=== PATIENT | female | born 1985 | race Caucasian/White ===

== ENCOUNTER 2023-02-20 08:37 | Outpatient (CLI) | payer OTHER, SELFPAY | END 2023-02-20 08:38 | disposition home or self-care (01) | PROVIDERS: PCP Family Medicine; Visit Provider Family Medicine | DX: Z00.00 Encounter for general adult medical examination without abnormal findings (principal); Z13.6 Encounter for screening for cardiovascular disorders | CPT/HCPCS: 80053; 80061 ==

== ENCOUNTER 2025-10-10 16:12 | Outpatient (CLI) | payer OTHER, SELFPAY | END 2025-10-10 16:13 | disposition home or self-care (01) | PROVIDERS: PCP Family Medicine; Visit Provider Family Medicine | DX: J45.30 Mild persistent asthma, uncomplicated (principal); R06.02 Shortness of breath; R05.9 Cough, unspecified | CPT/HCPCS: 80048 ==

== ENCOUNTER 2025-10-10 17:13 | Outpatient (CLI) | payer OTHER, SELFPAY ==
--- NOTE | 2025-10-10 17:15 | CRLHL7_ITS ---
For Patients: As a result of the Century Cures Act, medical imaging exams and procedure reports are released immediately into your electronic medical record. You may view this report before your referring provider. If you have questions, please contact your health care provider. Indication: Mild persistent asthma, uncomplicated, COUGH, SOB Technique: CTA chest, pulmonary embolism protocol, utilizing 95 mL Isovue 370 Comparison: None Findings: No imaged thyroid nodules. No thoracic lymphadenopathy. The heart is normal in size. No right heart strain. No pericardial effusion. The thoracic aorta and pulmonary artery are normal in caliber. No appreciable pulmonary embolism. No focal airspace consolidation, pleural effusion, or pneumothorax. No emphysematous or fibrotic changes. No suspicious pulmonary nodules or masses. The airways are clear. Slight bronchial wall thickening which can be seen with asthma/bronchitis. The imaged upper abdomen is unremarkable. The soft tissues and bones are unremarkable. Impression: 1. No pulmonary embolism. 2. Slight bronchial wall thickening which can be seen with asthma/bronchitis. 3. No focal airspace consolidation, pleural effusion, or pneumothorax. Please note that all CT scans at this facility use dose modulation, iterative reconstruction, and/or weight-based dosing when appropriate to reduce radiation dose to as low as reasonably achievable. Dictated by Zacarias Goins MD @ 10/10/2025 6:19:23 PM (Electronically Signed)
== END 2025-10-10 17:14 | disposition home or self-care (01) ==
LOC: CT 17:14
PROVIDERS: PCP Family Medicine; Visit Provider Family Medicine
DX: Z03.89 Encounter for observation for other suspected diseases and conditions ruled out (principal); J45.30 Mild persistent asthma, uncomplicated; R05.9 Cough, unspecified; R06.02 Shortness of breath; J98.09 Other diseases of bronchus, not elsewhere classified
CPT/HCPCS: 71275; Q9967